=== PATIENT | female | born 1945 | race Caucasian/White ===

== ENCOUNTER 2019-11-16 15:16 | Emergency (ER) | payer MEDICARE, OTHER, SELFPAY ==
[2019-11-16 15:22] VITALS: BP 141/102; PULSE 102; RESP 16; TEMP 36.3; O2SAT 97; BMI 34.9
--- NOTE | 2019-11-16 15:37 | CT_ITS ---
STUDY: CT ABDOMEN AND PELVIS WITHOUT CONTRAST REASON FOR EXAM: Female, 74 years old. Pancreatic cancer. Abdominal pain. RADIATION DOSAGE (If Supplied By Facility): CTDIvol = ( 14.45 ) mGy, DLP = ( 791.98 ) mGycm TECHNIQUE: Transaxial images were obtained from the dome of the diaphragm to the symphysis pubis without oral contrast, and without intravenous contrast. Sagittal and coronal images were reconstructed. Individualized dose optimization techniques were used for this CT. COMPARISON: None. FINDINGS: Limited views of the lower chest show chronic pulmonary changes in both posterior lung bases including probable scarring in the right posterior costophrenic angle and mild bronchiectasis. Evaluation of the abdomen and pelvis is extremely limited without IV and oral contrast in this cancer patient. Liver shows diffuse heterogeneity, possibly a nodular surface pattern, and intrahepatic bile duct distention. There is hepatomegaly. Gallbladder has been removed. Probable dilated common bile duct although it is poorly seen. Markedly abnormal pancreas with numerous calcifications and possibly surgical clips. Irregular heterogeneous probable mass of the pancreatic head approximately 4.5 cm, again very poorly seen without IV and oral contrast. There may be local infiltration and adenopathy in the epigastric region. There appears to have been WHIPPLE procedure with gastrojejunostomy. Evaluation of the GI tract is extremely limited without oral contrast. However no gross obstruction. Cannot include segments of bowel wall thickening. Spleen and adrenal glands are unremarkable. No gross acute abnormality of the kidneys. Suggestion of edema and/or neoplastic disease to the omentum with enlarged lymphatics. Normal abdominal aorta. Normal inferior vena cava. Normal retroperitoneum. Normal urinary bladder. There is absence of the uterus consistent with a prior hysterectomy. There is a [id number] umbilical hernia containing fat. There are diffuse degenerative changes of the visualized lumbar spine. CT/Abdomen/Pelvis without Cont IMPRESSION: This exam is markedly limited without IV and oral contrast, a significant limitation when evaluating patients with pancreatic cancer. Abnormal appearance of the liver. There is hepatomegaly. There is probable intrahepatic bile duct distention. There are diffuse heterogeneity. There has been WHIPPLE procedure. Cannot exclude neoplasm infiltrating into the peripancreatic fat planes. Cannot exclude peritoneal/omental neoplastic disease. Electronically Signed: Fito Green MD at 16:56 EDT , Service support ,
--- NOTE | 2019-11-16 15:39 | ED.DCSUM_ITS ---
- ER Visit Summary Date of Service: 11/16/19 Chief Complaint: Abdominal pain History of Present Illness: The patient is a 74 F presenting with abdominal pain. Patient states she had an endoscopy and colonoscopy per Dr. Rock on Wednesday. She states she was diagnosed with an ulcer and started on Prilosec. She has been having normal bowel movements. She states today she started having abdominal pain, nausea, and vomiting. Denies blood in her stool or emesis. Denies fever. Denies other complaints. Physical Examination: Vitals are stable. Patient is afebrile. Alert no acute distress. HEENT exam is unremarkable. Neck is supple. Lungs are clear and equal bilaterally. Heart is regular rate and rhythm. Abdomen is soft left upper quadrant tenderness, no guarding or rebound Extremities are unremarkable. Skin is warm and dry. No focal neurologic deficit. Remainder of exam is unremarkable. Emergency Department Course and Treatment: Patient was given morphine, Zofran IV. CBC, chemistries unremarkable other than sodium 134, glucose 225. Alk phos 119, AST 39, lipase 63. Urinalysis unremarkable. CT abdomen pelvis shows this exam is markedly limited without IV and oral contrast, a significant limitation when evaluating patients with pancreatic cancer. Abnormal appearance of the liver. There is hepatomegaly. There is probable intrahepatic bile duct distention. There are diffuse heterogeneity. There has been WHIPPLE procedure. Cannot exclude neoplasm infiltrating into the peripancreatic fat planes. Cannot exclude peritoneal/omental neoplastic disease. Patient states she follows closely at [facility] with a specialist for her history of pancreatic cancer. She states she is imaged regularly. She is advised to follow-up with tomorrow to schedule a recheck. She understands the importance of this. She was given a GI cocktail with improvement of her symptoms. Discussed with [facility] GI on-call for Dr. Rock. Patient will be started on Carafate and will call Dr. Rock's office tomorrow for follo w-up. Advised return to ED for worsening complaints. Disposition: Discharge home Impression: Abdominal pain, history of peptic ulcer This note was generated with [employer] dictation software. It may contain incorrect words, spelling, and punctuation that were not noted in review of the chart prior to signing ED Disposition - Plan for ED Patient: Instructions: ED PEPTIC ULCER vs GASTRITIS Prescriptions: Sucralfate [Carafate] 1 gm PO 4X/DAY #28 tab Prescription Printed Referrals: Erika Mitchell MD [STAFF PHYSICIAN] - Jasiel Rock MD [CONSULTING PHYSICIAN] -
[2019-11-16] MEDS: Ondansetron 4 MG/2 ML Vial IV (15:50)
[2019-11-16] MEDS: 0.9% Normal Saline 1,000 ML 150 ML IV (15:52)
[2019-11-16] MEDS: Morphine 4 MG/ML Syringe IV (15:52)
[2019-11-16 16:07] LABS: Absolute Lymphocyte Count 0.81 X10^3/uL (0.83-4.51); Absolute Neutrophil Count 5.3 X10^3/uL (2.0-7.7); Basophil# 0.02 X10^3/uL; Basophil% 0.3 % (0-1); Eosinophil# 0.15 X10^3/uL; Eosinophils% 2.2 % (0-5); Hematocrit 40.6 % (37-47); Hemoglobin 13.2 g/dL (12.0-15.0); Lymphocyte # 0.81 X10^3/ul (4.0); Lymphocyte % 11.8 % (19-41); Mean Corp Hgb Conc 32.5 g/dL (32-36); Mean Corpuscular Hgb 29.5 pg (27.0-32.0); Mean Corpuscular Volume 90.6 fL (81-99); Mean Platelet Vol. 10.8 fl (6.2-12.0); Monocyte# 0.52 X10^3/uL; Monocyte% 7.6 % (0-10); NRBC Flagged by Analyzer 0 % (0-5); Neutrophil # 5.32 X10^3/uL (2.7-7.7); Neutrophil % 77.8 % (47-70); Platelet Count 185 K/mm3 (150-450); RBC Distribution Width CV 13.2 % (11.6-14.6); RBC Distribution Width SD 43.2 fl (35.1-43.9); Red Blood Count 4.48 M/mm3 (4.2-5.4); White Blood Count 6.8 K/mm3 (4.4-11.0)
[2019-11-16 16:29] LABS: ALB/GLOB Ratio 0.9 RATIO (0.9-2.4); AST(SGOT) 39 U/L (15-37); Alanine Aminotransfer ALT/SGPT 39 U/L (13-56); Albumin, Serum 3.5 g/dL (3.2-5.0); Alkaline Phosphatase 119 U/L (45-117); Anion Gap 4 (5-15); BUN 9 mg/dL (7-18); BUN/Creat Ratio 13.6 RATIO (10-20); Calcium,Total 9.8 mg/dL (8.5-10.1); Chloride 100 mmol/L (98-107); Creatinine, Serum 0.66 mg/dL (0.55-1.02); EST Glomerular Filtration Rate 93 mL/min (>60); Est Glom Filt Rate - Afr Amer 112 mL/min (>60); Estimated Creatinine Clearance 50.54 ml/min; Globulin 3.9 g/dL (2.2-4.2); Glucose 225 mg/dL (74-106); Lipase 63 U/L (73-393); Potassium 4.1 mmol/L (3.5-5.1); Protein, Total 7.4 g/dL (6.4-8.2); Sodium Level 134 mmol/L (136-145)
[2019-11-16 17:32] LABS: Bacteria 0 SEEN /hpf (None Seen); Mucous, Urine 0 SEEN /hpf (<or=2+); Red Blood Cells-Urine 0 SEEN /hpf (0-5)
[2019-11-16] MEDS: Mag Hydrox/Al Hydrox/Simeth 30 ML UDC PO (17:34)
[2019-11-16 17:35] LABS: Color, Urine Yellow (Yellow); Glucose, Dipstick Normal (Normal); Ketone-Dipstick 50 mg/dl (Negative); Leukocyte Esterase-Dipstick 25 /ul (Negative); Nitrite-Dipstick Negative (Negative); Occult Blood-Urine Negative /ul (Negative); Protein-Dipstick Negative (Negative); Specific Gravity, Urine 1.015 (1.002-1.030); Urine Bilirubin Dipstick Negative (Negative); Urine Clarity Sl. Cloudy (Clear); Urine Urobilinogen Normal (Normal); Urine pH 6.5 (5.0 - 8.0)
[2019-11-16 17:51] LABS: Squamous Epithelial Cells - UA 0-5 SEEN /hpf (5-10); White Blood Cells 0-5 SEEN /hpf (0-5)
--- NOTE | 2019-11-16 18:51 | ED.DEP ---
ED Disposition - Plan for ED Patient: Instructions: ED PEPTIC ULCER vs GASTRITIS Prescriptions: Sucralfate [Carafate] 1 gm PO 4X/DAY #28 tablet Referrals: Erika Mitchell MD [STAFF PHYSICIAN] - Jasiel Rock MD [CONSULTING PHYSICIAN] -
== END 2019-11-16 19:35 | disposition home or self-care (01) ==
PROVIDERS: Emergency Provider Emergency Medicine
DX: R10.12 Left upper quadrant pain (principal); I10 Essential (primary) hypertension; E11.9 Type 2 diabetes mellitus without complications; K21.9 Gastro-esophageal reflux disease without esophagitis; Z87.11 Personal history of peptic ulcer disease; Z85.07 Personal history of malignant neoplasm of pancreas; Z79.84 Long term (current) use of oral hypoglycemic drugs; Z79.899 Other long term (current) drug therapy
CPT/HCPCS: 74176; 80053; 81001; 83690; 85025; 96361; 96374; 96375; 99284; J7030; A4216; J2405

== ENCOUNTER 2019-11-17 00:37 | Observation (INO) | payer MEDICARE, OTHER, SELFPAY ==
[2019-11-16 15:22] VITALS: BMI 34.9
[2019-11-17 00:39] VITALS: BP 173/102; PULSE 103; RESP 18; TEMP 36.9; O2SAT 93; BMI 36.8
[2019-11-17] MEDS: HYDROmorphone 1 MG/ML Syringe IV (01:20)
[2019-11-17] MEDS: Ondansetron 4 MG/2 ML Vial IV ×2 (01:21→17:25)
[2019-11-17 01:31] LABS: Absolute Lymphocyte Count 0.79 X10^3/uL (0.83-4.51); Absolute Neutrophil Count 5.5 X10^3/uL (2.0-7.7); Basophil# 0.02 X10^3/uL; Basophil% 0.3 % (0-1); Eosinophil# 0.18 X10^3/uL; Eosinophils% 2.6 % (0-5); Hematocrit 41.2 % (37-47); Hemoglobin 13.1 g/dL (12.0-15.0); Lymphocyte # 0.79 X10^3/ul (4.0); Lymphocyte % 11.2 % (19-41); Mean Corp Hgb Conc 31.8 g/dL (32-36); Mean Corpuscular Volume 91.4 fL (81-99); Mean Platelet Vol. 10.3 fl (6.2-12.0); Monocyte# 0.56 X10^3/uL; NRBC Flagged by Analyzer 0 % (0-5); Neutrophil # 5.47 X10^3/uL (2.7-7.7); Neutrophil % 77.6 % (47-70); Platelet Count 176 K/mm3 (150-450); RBC Distribution Width CV 13.2 % (11.6-14.6); RBC Distribution Width SD 43.9 fl (35.1-43.9); Red Blood Count 4.51 M/mm3 (4.2-5.4)
[2019-11-17 01:48] LABS: AST(SGOT) 30 U/L (15-37); Alanine Aminotransfer ALT/SGPT 36 U/L (13-56); Albumin, Serum 3.5 g/dL (3.2-5.0); Alkaline Phosphatase 112 U/L (45-117); Anion Gap 5 (5-15); BUN 10 mg/dL (7-18); BUN/Creat Ratio 14.4 RATIO (10-20); Calcium,Total 9.3 mg/dL (8.5-10.1); Chloride 102 mmol/L (98-107); Creatinine, Serum 0.69 mg/dL (0.55-1.02); EST Glomerular Filtration Rate 88 mL/min (>60); Est Glom Filt Rate - Afr Amer 106 mL/min (>60); Estimated Creatinine Clearance 50.54 ml/min; Globulin 3.4 g/dL (2.2-4.2); Glucose 282 mg/dL (74-106); Lipase 55 U/L (73-393); Potassium 3.8 mmol/L (3.5-5.1); Protein, Total 6.9 g/dL (6.4-8.2); Sodium Level 137 mmol/L (136-145)
--- NOTE | 2019-11-17 02:03 | PCM.HP.STD ---
Problem List (1) PUD (peptic ulcer disease) Status: Acute (2) Diabetes Status: Chronic History of Present Illness Date of Admission: 11/17/19 Chief Complaint: abdominal pain The patient is a 74 year old F with a significant history of liver cancer and pancreatic cancer status post liver resection and pancreatectomy; diabetes mellitus and peptic ulcer disease presented emergency department with excruciating abdominal pain. Her abdominal pain is located at the left lumbar area. Associated with his symptoms is vomiting. Vomiting actually exacerbates her pain. Her pain improved with pain medication received at the emergency department. Of note because of diarrhea patient had an endoscopy in March 2019. The endoscopy showed 'a spot in her stomach. A follow-up endoscopy was done on 11/13/[address] Jasiel Osborne at [facility] [place]. The follow-up endoscopy showed an oozing gastric ulcer with no stigmata of bleeding. The ulcer was biopsied. Before the endoscopy on 11/13/2019 patient had some abdominal pain. After endoscopy she had some discomfort in her abdomen. However 2 days before presentation she began to have excruciating left lumbar pain as above. Within the last 24 hours she has been at emergency department 2 times. On her first visit patient had an abdominal and pelvis CT and was discharged home to follow-up with her clerical specialist. Past Medical History Past Medical History (Chronic Problems): Chronic Problems Diabetes (Chronic) Allergies Iodinated Contrast Media [DYEE] Allergy (Verified 11/17/19 00:38) Rash Penicillins [PCN] Allergy (Verified 11/17/19 00:38) Rash Home Medications: Ambulatory Orders Medication Instructions Recorded Glimepiride [Amaryl] 4 mg PO DAILY 11/16/19 Lisinopril [Prinivil] 10 mg PO DAILY 11/16/19 Metformin HCl [Metformin HCl ER] 1,000 mg PO BID 11/16/19 Omeprazole 40 mg PO DAILY 11/16/19 Pravastatin Sodium 10 mg PO DAILY 11/16/19 Sucralfate [Carafate] 1 gm PO 4X/DAY #28 tab 11/16/19 Surgical History: cholecystectomy, herniorrhaphy, hysterectomy, - - Pancreectomy; liver resection; knee replacement; and foot surgery Smoking Status: Never smoker - *Family History Paternal History Items: - - She denies knowledge of paternal medical history. His father at age 83. Maternal History Items: Heart Disease Review of Systems Constitutional: Denies: Chills, Fever, Weight Change HEENT: Denies: Head Aches, Sinus Congestion, Sinus Drainage Cardiovascular: Denies: Chest Pain, Palpitations Respiratory: Denies: Cough, Shortness of breath at rest, Sputum production Gastrointestinal: Reports: Abdominal Pain, Nausea, Vomiting Genitourinary: Denies: Dysuria Musculoskeletal: Denies: Joint Pain, Joint Tenderness Skin: Denies: Rash, Wounds Neurological: Denies: Numbness, Tingling, Focal weakness Psychiatric: Denies: Anxiety, Depression, Homicidal Ideations, Suicidal Ideations Hematologic/ Lymphatic: Denies: Easy Bruising, Easy Bleeding VTE Information - Inpt Only VTE Present on Admission: No VTE Mechan Device Prophylaxis: SCD's VTE Pharm Prophylaxis ordered?: No Patient Problems: Active and Suspected Problems Abdominal pain (Acute) PUD (peptic ulcer disease) (Acute) - Physical Exam Vitals/I&O's: Vital Signs Temp Pulse Resp BP Pulse Ox 98.4 F 103 H 18 173/102 H 93 11/17/19 00:39 11/17/19 00:39 11/17/19 00:39 11/17/19 00:39 11/17/19 00:39 Oxygen Delivery Method Room Air Weight: 109.7 kg Body Mass Index (BMI) 36.8 General: Alert, Oriented x3, Cooperative HEENT: Atraumatic, PERRLA, EOMI, Normocephalic Neck: Supple, No JVD, Negative Carotid Bruits Lungs: Clear to auscultation, Normal air movement Cardiovascular: Regular rate, Normal S1, Normal S2, No murmurs Abdomen: Bowel Sounds Present, Soft, Tender Extremities: No edema, Capillary Refill Less than 3 Seconds Skin: No rashes, No breakdown Musculoskeletal: No Tenderness to Palpation of Joints or Extremities Neurological: Cranial nerves II-XII grossly intact Psych/Mental Status: Normal Affect, Appropriate Laboratory Results 11/17/19 01:25: WBC 7.0, RBC 4.51, Hgb 13.1, Hct 41.2, MCV 91.4, MCH 29.0, MCHC 31.8 L, RDW Std Deviation 43.9, RDW Coeff of Arelis 13.2, Plt Count 176, MPV 10.3, Immature Gran % (Auto) 0.300, Neut % (Auto) 77.6 H, Lymph % (Auto) 11.2 L, Hudspeth % (Auto) 8.0, Eos % (Auto) 2.6, Baso % (Auto) 0.3, Absolute Neuts (auto) 5.5, Absolute Lymphs (auto) 0.79 L, Nucleated RBC % 0 11/17/19 01:25: Sodium 137, Potassium 3.8, Chloride 102, Carbon Dioxide 30.0, Anion Gap 5, BUN 10, Creatinine 0.69, Estim Creat Clear Calc 50.54, Est GFR (MDRD) Af Amer 106, Est GFR (MDRD) Non-Af 88, BUN/Creatinine Ratio 14.4, Glucose 282 H, Calcium 9.3, Total Bilirubin 0.90, AST 30, ALT 36, Alkaline Phosphatase 112, Total Protein 6.9, Albumin 3.5, Globulin 3.4, Albumin/Globulin Ratio 1.0, Lipase 55 L Assessment/Plan All Active Problems Abdominal pain (Acute) PUD (peptic ulcer disease) (Acute) The patient is a 74 year old F with a significant history of liver cancer and pancreatic cancer status post liver resection and pancreatectomy; diabetes mellitus and peptic ulcer disease presented emergency department with excruciating abdominal pain and with a recent endoscopy. Peptic ulcer disease After her endoscopy on 11/13/2019 Prilosec 40 mg daily was prescribed. On emergency department visit on 11/16/2019 per emergency department doctor's notes the case was discussed with the on-call doctor for Dr. Rock and the plan was to start patient on Carafate and to call Dr. Osborne's office next day. CT of the abdomen and pelvis could not exclude neoplasm. However reportedly patient has had many images in the past. Consider discussing the case with Dr. Rock. Cannot rule out neoplasm at this time. However since reportedly patient has had multiple images it will be prudent to check with her GI specialist before further work-up. Will hold home Prilosec. Will order Protonix 40 mg IV twice daily. Carafate ordered. Keep patient n.p.o. for now. Morphine as needed. Zofran IV PRN. Gentle IV hydration. The patient is anemic. Check H&H in a.m. Diabetes mellitus On presentation blood glucose was not within goal. Hold metformin for now. Glimepiride continued. Accu-Chek with correction scale insulin ordered. Reportedly he developed diabetes after pancreatectomy. Hypertension On presentation blood pressure was now within goal Lisinopril continued Trend blood pressure and adjust blood pressure medication. Hyperlipidemia Pravastatin continued DVT prophylaxis SCD ordered. No chemoprophylaxis at this time secondary to peptic ulcer disease. OBSV E&M: 33909 Initial observation care L3
--- NOTE | 2019-11-17 02:17 | ED.VIS.GEN ---
History of Present Illness Chief Complaint: Nausea/Vomiting Informant: Patient Narrative: Patient was recently seen for abdominal pain had a normal work-up including CAT scan and was discharged. She arrives with significant pain. She had endoscopy 4 days ago and was found to have a peptic ulcer disease. She denies fever chills cough or congestion she denies lower abdominal pain. Past Medical History - Allergies and Home Meds Allergies/Adverse Reactions: Allergies Iodinated Contrast Media [DYEE] Allergy (Verified 11/17/19 00:38) Rash Penicillins [PCN] Allergy (Verified 11/17/19 00:38) Rash Primary Care Physician: Care Physician,No Primary [Primary Care Provider] - Past Medical History: - - Peptic ulcer disease otherwise reviewed and unremarkable Smoking Status: Never smoker Review of Systems General: Denies: Fever Cardiovascular: Denies: Chest pain, Palpitations Respiratory: Denies: Dyspnea, Cough Gastrointestinal: Reports: Abdominal pain, Nausea. Denies: Vomiting Genitourinary: Denies: Dysuria Musculoskeletal: Denies: Myalgias, Arthralgias Skin: Denies: Rash Neurological: Denies: Headache, Weakness Endocrine: Denies: Polyuria, Polydipsia Hematologic: Denies: Easy bruising, Easy bleeding Physical Exam Vital Signs/Narrative: Vital Signs Temp Pulse Resp BP Pulse Ox 11/17/19 00:39 98.4 F 103 H 18 173/102 H 93 General: Well nourished, Well developed, - - Does appear in some distress Head: Normocephalic ENT: Moist mucous membranes Cardiovascular: Regular rate, Regular rhythm Respiratory: No distress Abdomen: Soft, - - Gastric tenderness with no right upper quadrant pain no lower abdominal pain no guarding or rebound. Back: Nontender Extremities: No edema Skin: Normal color Neurological: Alert Diagnostic/Tx/Re-eval - Medical Decision Making Patient has normal blood work, I do not believe it is reasonable to repeat a CAT scan so early she may need another CTA tomorrow however as of now I will admit her for intractable pain. ED Disposition - Plan for ED Patient: Disposition: Home or Assisted Living Diagnosis: Abdominal pain Referrals: Care Physician,No Primary [Primary Care Provider] -
[2019-11-17 02:52] VITALS: BP 157/81; PULSE 89; RESP 16; TEMP 36.8; O2SAT 94
[2019-11-17 03:11] VITALS: BMI 34.6
[2019-11-17 03:21] VITALS: BP 159/88; PULSE 90; RESP 17; TEMP 36.6; O2SAT 94
[2019-11-17 03:33] VITALS: BMI 34.6
[2019-11-17] MEDS: 0.9% Normal Saline 1,000 ML 75 ML IV ×2 (03:45→17:07)
[2019-11-17 05:39] LABS: Hematocrit 38.5 % (37-47)
[2019-11-17] MEDS: Sucralfate 1 GM Tablet PO ×4 (06:36→21:51)
[2019-11-17] MEDS: Insulin Lispro 100 UNIT/ML INSULN.PEN SC ×3 (06:40→16:28)
[2019-11-17 07:06] LABS: Bedside Glucose 278 mg/dL (70-110)
--- NOTE | 2019-11-17 08:21 | PCM.PN.BLA ---
Progress Note This is a 74 years old female patient admitted because of intractable abdominal pain in context of recent diagnosis of peptic ulcer. Patient returned to the emergency room within few hours after discharge. On the first visit to ED, CT scan abdomen and pelvis done, findings reviewed. Patient with history of pancreatic cancer status post surgery. She was started on IV Protonix and Carafate. This morning, he is feeling much better, she has no more abdominal pain. Denied nausea or vomiting. Her routine blood work was unremarkable. LFT and lipase were unremarkable. Vital signs are stable. Plan to continue same treatment, advance diet to clear liquid diet and if tolerated, advance to full liquid diet later today, anticipate discharge home tomorrow.
[2019-11-17 09:21] VITALS: BP 144/76; PULSE 92; RESP 18; TEMP 36.8; O2SAT 93
[2019-11-17 13:05] LABS: Bedside Glucose 227 mg/dL (70-110)
--- NOTE | 2019-11-17 13:29 | CHAPLAIN ---
Type of Pastoral Visit _x__ Initial Visit ___ Follow-up Visit ___ On-call Visit ___ General Patient Visit ___ Spiritual Assessment ___ Family Conference ___ Bereavement ___ Rapid Response ___ Code Blue ___ Other (describe below) Pastoral Care Referral From _x__ Patient ___ Family ___ Nurse ___ Physician ___ Kineseologist ___ Digital Imaging Specialist ___ Other (describe below) Sacrament/Intervention _x__ Active listening ___ Anointing ___ Mandaen ___ Bereavement ___ Communion _x__ Pam exploration ___ ___ Life review _x__ Prayer ___ Reconciliation ___ Sacrament of Sick _x__ Supportive presence ___ Wedding ___ Other (describe below) Pastoral Comments
[2019-11-17 15:50] VITALS: BP 158/78; PULSE 90; RESP 18; TEMP 37.3; O2SAT 94
[2019-11-17 16:35] LABS: Bedside Glucose 223 mg/dL (70-110)
[2019-11-17] MEDS: Lisinopril 10 MG Tablet PO (17:11)
[2019-11-17] MEDS: Acetaminophen 325 MG Tablet 650 MG PO (17:11)
[2019-11-17] MEDS: 0.9% Saline Lock 10 ML Syringe IV (17:25)
--- NOTE | 2019-11-17 17:56 | NURSING ---
pt states that Dr. Rock called her today and stated that her ulcer is actually cancer and he will see her in his office Wednesday. Has been nauseated at times today with emesis x1 thx [id number]
[2019-11-17 21:07] VITALS: BP 132/63; PULSE 77; RESP 18; TEMP 37.1; O2SAT 96
[2019-11-17] MEDS: Pravastatin 20 MG Tablet 10 MG PO (21:51)
[2019-11-18] MEDS: Insulin Lispro 100 UNIT/ML INSULN.PEN SC ×2 (00:40→06:35)
[2019-11-18 00:46] LABS: Bedside Glucose 185 mg/dL (70-110)
[2019-11-18 02:46] VITALS: BP 139/64; PULSE 73; RESP 18; TEMP 37.3; O2SAT 92
[2019-11-18] MEDS: Acetaminophen 325 MG Tablet 650 MG PO (06:35)
[2019-11-18] MEDS: Sucralfate 1 GM Tablet PO ×2 (06:35→10:01)
[2019-11-18] MEDS: 0.9% Normal Saline 1,000 ML 75 ML IV (06:36)
[2019-11-18 06:51] LABS: Bedside Glucose 223 mg/dL (70-110)
[2019-11-18 07:50] VITALS: O2SAT 90
[2019-11-18] MEDS: Glimepiride 4 MG Tablet PO (08:08)
[2019-11-18 08:45] VITALS: BP 130/73; PULSE 80; RESP 16; TEMP 36.7; O2SAT 97
--- NOTE | 2019-11-18 11:59 | DCINST_ITS ---
- Discharge Diagnoses Current Active Problems: Current Active and Chronic Problems Abdominal pain (Acute) PUD (peptic ulcer disease) (Acute) Diabetes (Chronic) You will use the following diet at home:: Calorie/Carbohydrate Controlled (specify 1200, 1400, etc) - 1800 lashaun., Full liquid, Other - Advance diet as tolerated. Your food should be the consistency of: Regular Discharge Activity: Return to Normal Activity Weight Bearing Status: Weight bearing as tolerated Call your doctor if you observe: Fever of 101 or Higher, Shortness of breath, Dizziness, Fainting spells, Chest pain, Increased palpitations (irregular h eartbeat), Uncontrolled pain Additional Instructions: Follow-up with Dr. Rock as scheduled. Allergies/Adverse Reactions: Allergies Iodinated Contrast Media [DYEE] Allergy (Verified 11/17/19 00:38) Rash Penicillins [PCN] Allergy (Verified 11/17/19 00:38) Rash Medications to take at Discharge Glimepiride [Amaryl] 4 mg PO DAILY 11/16/19 Lisinopril [Prinivil] 10 mg PO DAILY 11/16/19 Metformin HCl [Metformin HCl ER] 1,000 mg PO BID 11/16/19 Pravastatin Sodium 10 mg PO DAILY 11/16/19 Sucralfate [Carafate] 1 gm PO 4X/DAY #28 tab 11/16/19 Mag Hydrox/Al Hydrox/Simeth [Mylanta II] 30 ml PO Q8H PRN PRN #14 udc 11/18/19 Ondansetron HCl [Zofran] 4 mg PO Q8H PRN PRN #30 tab 11/18/19 Pantoprazole Sodium [Protonix] 40 mg PO BID #90 tab 11/18/19 Sucralfate [Carafate] 1 gm PO 1HR_ACHS #90 tab 11/18/19 The following prescriptions were given: Sucralfate [Carafate] 1 gm PO 1HR_ACHS #90 tab Transmission Status: Pending to [id number] Mag Hydrox/Al Hydrox/Simeth [Mylanta II] 30 ml PO Q8H PRN PRN #14 udc PRN Reason: indigestion/ nausea Transmission Status: Pending to [id number] Pantoprazole Sodium [Protonix] 40 mg PO BID #90 tab Transmission Status: Pending to [id number] Ondansetron HCl [Zofran] 4 mg PO Q8H PRN PRN #30 tab PRN Reason: Nausea and vomiting Transmission Status: Pending to [id number] Primary Care Physician: Care Physician,No Primary [Primary Care Provider] - Please follow up with your Primary Care Physician in: 2 weeks. Test Results: Test results from this visit will be discussed in further detail at your follow- up appointment, if applicable.
[2019-11-18 12:00] VITALS: PULSE 90; RESP 16; TEMP 36.8; O2SAT 96
--- NOTE | 2019-11-18 13:15 | DS.PCM_ITS ---
Discharge Date and Diagnosis - Problem List Patient Problems: Active and Suspected Problems Abdominal pain (Acute) PUD (peptic ulcer disease) (Acute) Date of Admission: 11/17/19 Date of Discharge: 11/18/19 - Primary Discharge Diagnosis Acute Problems: Active Problems #1 intractable abdominal pain and nausea. #2 gastric ulcer, reportedly determined to be cancer according to the patient. - Secondary Discharge Diagnosis Chronic Problems: Chronic Problems Diabetes (Chronic) Hospital Course and Treatment Operations: None Procedures: None Summary of Care Provided: Patient seen and examined on the day of discharge and appeared to be stable to be discharged home. Abdominal pain has been improving as well as nausea. She tolerated full liquid diet. Her vital signs are stable. The patient is a 74 year old F presented to the emergency room because of intractable abdominal pain with nausea. 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 She had upper EGD done on November 13, [address] Rock at [facility] and she was found to have gastric ulcer which was pipe sized. The patient came to the emergency department the day before admission, had CT scan abdomen and pelvis without contrast that revealed abnormal appearance of the liver, hepatomegaly, probable intrahepatic bile duct distention, Whipple's procedure changes and they mentioned that they cannot exclude peritoneal or omental neoplastic disease. Patient was treated with IV fluids, IV morphine PRN for pain, IV antiemetics, IV Protonix as well as Carafate and Mylanta. Her routine blood work was unremarkable. LFT and lipase were normal. Above-mentioned treatment, her symptoms started to improve. Patient was started on clear liquids which was tolerated. According to the patient, she received a call from Dr. Rock who informed her that her gastric ulcer turned to be cancerous and he requested her to follow-up with him this coming week. On the day of discharge, patient felt better, diet advanced to full liquid diet and she tolerated it. Patient discharged home in a stable medical condition, discharged on Protonix 40 mg p.o. twice daily, Carafate 4 times a day, Zofran as needed, Mylanta as needed, continued on her previous home medications without any changes, plan to follow-up with Dr. Rock this week as scheduled, recommended follow-up with her manager mall at [facility] regarding her history of pancreatic cancer, recommended follow-up with PCP in 2 week. Patient Problems: Active and Suspected Problems Abdominal pain (Acute) PUD (peptic ulcer disease) (Acute) - Physical Exam Vitals/I&O's: Vital Signs Temp Pulse Resp BP Pulse Ox 98.3 F 90 16 130/73 H 96 11/18/19 12:00 11/18/19 12:00 11/18/19 12:00 11/18/19 08:45 11/18/19 12:00 Oxygen Delivery Method Room Air Weight: 227 lb 8.273 oz Body Mass Index (BMI) 34.6 Intake and Output for Last 24 Hours 11/16/19 11/17/19 11/18/19 23:59 23:59 23:59 Intake Total 2708.75 / 2708.75 2486.25 / 2486.25 Output Total 1350 / 1350 1550 / 1550 Balance 1358.75 / 1358.75 936.25 / 936.25 General: Alert, Oriented x3, Cooperative, No apparent distress HEENT: Atraumatic, PERRLA, EOMI, Normocephalic Oral: Moist Mucosa, No Gingival or Mucosal Lesions/ Ulcerations Neck: Supple, No JVD, Negative Carotid Bruits, Trachea Midline, Thyroid Normal Size and Texture Lungs: Clear to auscultation, Normal air movement, No rhonchi, No wheeze, No rales Cardiovascular: Regular rate, Regular Rhythm, Normal S1, Normal S2, PMI Normal Abdomen: Bowel Sounds Present, Soft, Non Tender, Non-Distended, No Hepato- splenomegaly Extremities: No clubbing, No cyanosis, No edema Skin: No rashes, No breakdown Lymphatic: No Cervical, Supraclavicular, or Inguinal Adenopathy Neurological: Cranial nerves II-XII grossly intact, Neuro grossly intact Psych/Mental Status: Normal Affect, Appropriate Laboratory Results 11/17/19 16:26: POC Glucose 223 H 11/18/19 00:35: POC Glucose 185 H 11/18/19 06:32: POC Glucose 223 H Current Medications Acetaminophen (Tylenol) 650 mg PO Q6H PRN PRN PRN Reason: Pain Score 1-10/Temp > 100.7 F Last Admin: 11/18/19 06:35 Dose: 650 mg Documented by: Al Hydroxide/Mg Hydroxide (Mylanta Ii) 30 ml PO Q6H PRN PRN PRN Reason: indigestion/ nausea Dextrose (D50w Syringe) 0 gm IV X1 PRN; Protocol PRN Reason: Hypoglycemia Glimepiride (Amaryl) 4 mg PO DAILYCM [facility] Last Admin: 11/18/19 08:08 Dose: 4 mg Documented by: Glucagon () 1 mg IM .X1 PRN PRN Reason: Hypoglycemia Hydralazine HCl (Apresoline Iv) 10 mg IV Q8H PRN PRN PRN Reason: for SBP>160 Sodium Chloride () 1,000 mls @ 75 mls/hr IV .[id number] [facility] Last Infusion: 11/18/19 11:37 Dose: Infused Documented by: Pantoprazole Sodium 40 mg/ (Sodium Chloride) 110 mls @ 330 mls/hr IV Q12 [facility] Last Infusion: 11/18/19 11:38 Dose: Infused Documented by: Sodium Chloride () 250 mls @ 15 mls/hr IV .[id number] PRN PRN Reason: Saline Flush Insulin Human Lispro (Humalog Kwikpen (Bkc)) 0 unit SC Q6 [facility]; Protocol Last Admin: 11/18/19 11:37 Dose: Not Given Documented by: Lisinopril (Zestril) 10 mg PO QHS [facility] Last Admin: 11/17/19 17:11 Dose: 10 mg Documented by: Morphine Sulfate () 2 mg IV Q3H PRN PRN PRN Reason: Pain Score 6-10/10 Ondansetron HCl (Zofran) 4 mg IV Q8H PRN PRN PRN Reason: NAUSEA/VOMITING Last Admin: 11/17/19 17:25 Dose: 4 mg Documented by: Pravastatin Sodium (Pravachol) 10 mg PO DAILY@2200 [facility] Last Admin: 11/17/19 21:51 Dose: 10 mg Documented by: Sodium Chloride () 10 - 40 ml IV UD PRN PRN Reason: SALINE FLUSH Last Admin: 11/17/19 17:25 Dose: 10 ml Documented by: Sucralfate (Carafate) 1 gm PO 1HR_ACHS [facility] Last Admin: 11/18/19 10:01 Dose: 1 gm Documented by: Discharge Activity: Return to Normal Activity Weight Bearing Status: Weight bearing as tolerated Call your doctor if you observe: Fever of 101 or Higher, Shortness of breath, Dizziness, Fainting spells, Chest pain, Increased palpitations (irregular heartbeat), Uncontrolled pain Home Medications: Medications to take at Discharge Glimepiride [Amaryl] 4 mg PO DAILY 11/16/19 Lisinopril [Prinivil] 10 mg PO DAILY 11/16/19 Metformin HCl [Metformin HCl ER] 1,000 mg PO BID 11/16/19 Pravastatin Sodium 10 mg PO DAILY 11/16/19 Sucralfate [Carafate] 1 gm PO 4X/DAY #28 tab 11/16/19 Mag Hydrox/Al Hydrox/Simeth [Mylanta II] 30 ml PO Q8H PRN PRN #14 udc 11/18/19 Ondansetron HCl [Zofran] 4 mg PO Q8H PRN PRN #30 tab 11/18/19 Pantoprazole Sodium [Protonix] 40 mg PO BID #90 tab 11/18/19 Sucralfate [Carafate] 1 gm PO 1HR_ACHS #90 tab 11/18/19 Following Prescrptions Were Given to Patient: Sucralfate [Carafate] 1 gm PO 1HR_ACHS #90 tab Transmission Status: Received by [facility] Mag Hydrox/Al Hydrox/Simeth [Mylanta II] 30 ml PO Q8H PRN PRN #14 udc PRN Reason: indigestion/ nausea Transmission Status: Received by [facility] Pantoprazole Sodium [Protonix] 40 mg PO BID #90 tab Transmission Status: Received by [facility] Ondansetron HCl [Zofran] 4 mg PO Q8H PRN PRN #30 tab PRN Reason: Nausea and vomiting Transmission Status: Received by [facility] Primary Care Physician: Care Physician,No Primary [Primary Care Provider] - Please follow up with your Primary Care Physician in: 2 weeks. Disposition: Home Minutes spent on discharge:: 28 Patient Condition:: Stable Medical Necessity - Tobacco Use Smoking Status: Never smoker Tobacco Use: Secondhand Meaningful Use Info Meaningful Use Diagnoses (Choose all that apply): None applicable OBSV E&M: 41859 Observation care discharge
== END 2019-11-18 12:40 | disposition home or self-care (01) ==
LOC: ED 02:20 → MS3 02:46
PROVIDERS: Admitting Provider Hospitalist; Emergency Provider Emergency Medicine; Visit Provider Hospitalist
DX: K25.3 Acute gastric ulcer without hemorrhage or perforation (principal); E11.9 Type 2 diabetes mellitus without complications; E78.5 Hyperlipidemia, unspecified; I10 Essential (primary) hypertension; Z79.899 Other long term (current) drug therapy; Z79.84 Long term (current) use of oral hypoglycemic drugs; Z85.07 Personal history of malignant neoplasm of pancreas; Z85.05 Personal history of malignant neoplasm of liver
CPT/HCPCS: 36415; 80053; 82962; 83690; 85014; 85018; 85025; 96361; 96365; 96366; 96375; 96376; 97802; 99218; 99284; J7030; A4216; G0378; J2405

== ENCOUNTER 2020-01-05 12:23 | Day surgery (SDC) | payer MEDICARE, OTHER, SELFPAY ==
--- NOTE | 2020-01-03 19:04 | HP.PCM_ITS ---
History and Physical Date of Admission: 01/05/20 HISTORY AND PHYSICAL ? Yessi Cobb 1945 ? ? REFERRING PHYSICIAN: Jd Raphael, * ? CHIEF COMPLAINT: No chief complaint on file. ? 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 She had presented with increasing weakness and found to have bleeding gastric ulcer which was gastric adenocarcinoma. Found to have metastatic disease. Has been offered FOLFOX, requiring IV access. She has history of PE, and has right lower extremity DVT. Patient does feel weak all over. Denies fevers. She is being treated for a recent pneumonia and presently on antibiotics. ? ? PAST MEDICAL HISTORY Diagnosis Date ? Abnormality of gait 06/30/2011 ? Actinic skin damage 09/27/2012 ? 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 Endocrine neoplasm ? ? Hyperlipidemia LDL goal < 100 ? ? Hypertension ? ? Junctional nevus of thoracic region 09/27/2012 ? Lactose intolerance ? ? Melanocytic nevus of lower extremity 09/27/2012 ? MEN1 (multiple endocrine neoplasia) (HCC) ? ? Osteoarthritis ? ? Other hammer toe (acquired) 07/31/2011 ? Pes anserinus tendinitis or bursitis 01/25/2012 ? Scar condition and fibrosis of skin 11/25/2011 ? Seborrheic Keratoses 09/27/2012 ? Snoring ? ? Solar Lentigines 09/27/2012 ? 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 Type II or unspecified type diabetes mellitus with hyperosmolarity, uncontrolled ? ? Vitamin D deficiency ? ? Xerosis cutis 09/27/2012 ? PAST SURGICAL HISTORY Procedure Laterality Date ? AUTOTRANSPLANT, PARATHYROID ? 2000 ? MEN 1 ? CATARACT EXTRACTION HX Bilateral ? COLONOSCOP W/ OR W/O BRSH SPEC ? 07/03/13 ? Colonoscopy ? COLONOSCOP W/ OR W/O BRSH SPEC ? 11/13/2019 ? Colonoscopy ? COLONOSCOPY ? 02/2004 ? [place] ? CORRECT BUNION,SIMPLE ? 06/2011 ? left ? CORRECTION OF BUNION Left 03/28/2014 ? revision and hammertoes ? EGD W/O OR W/BRUSH/WASH ? 12/21/2016 ? EGD ? EGD W/O OR W/BRUSH/WASH ? 11/13/2019 ? EGD ? PAST SURGICAL HISTORY OF ? 2000 ? distal pancreatectomy enucleation of duodenal carcinoid and radiofrequency thermal ablation of a single metastatic focus of neuroendocrine tumor ? REMOVAL GALLBLADDER ? 1980 ? REPAIR INCISIONAL HERNIA,JULIET ? ? ? umbilical ? TOTAL ABDOM HYSTERECTOMY ? 1998 ? fibroids ? TOTAL KNEE REPLACEMENT Right 06/14/15 ? Knee replacement, total ? ? Current Outpatient Medications Medication Sig ? ondansetron (ZOFRAN) 8 mg tablet Take 1 tablet by mouth every 8 hours as needed for Nausea/Vomiting. ? OLANZapine (ZYPREXA) 10 mg tablet Take 1 tablet by mouth daily at bedtime. for 4 nights beginning the night of chemotherapy treatment. ? dexamethasone (DECADRON) 4 mg tablet Take 1 tablet by mouth twice daily with meals. on the second, third and fourth day after each chemotherapy treatment. ? lisinopril (ZESTRIL, PRINIVIL) 5 mg tablet Take 0.5 tablets by mouth once daily. ? Blood Pressure Monitor 1 Each once daily. ? doxycycline hyclate (VIBRAMYCIN) 100 mg capsule Take 1 capsule by mouth every 12 hours for 5 doses. ? metoprolol tartrate, short acting, (LOPRESSOR) 50 mg tablet Take 1 tablet by mouth every 12 hours. ? pantoprazole DR (PROTONIX) 40 mg tablet Take 1 tablet by mouth twice daily before meals (0600/1600). ? food supplemt, lactose-reduced (BOOST HIGH PROTEIN) 0.06 gram- 1 kcal/mL liqd Drink 1 bottle of boost three times daily along with small meals as tolerated ? metFORMIN ER (FORTAMET) 500 mg 24 hr tablet Take 1,000 mg by mouth twice daily with meals. ? acetaminophen 650 mg CR tablet Take 2 tablets by mouth twice daily. Held while in the hospital ? glimepiride (AMARYL) 4 mg tablet Take 1 tablet by mouth daily with breakfast. Held while in the hospital ? blood sugar diagnostic (BLOOD GLUCOSE TEST) test strip 1 Strip twice daily. E11.9 Held while in the hospital ? Blood-Glucose Meter Use to check BS daily. Dx: E 11.9 Held while in the hospital ? Lancets lancets 1 Each twice daily. E11.9 Held while in the hospital ? polyethylene glycol 3350 (MIRALAX, GLYCOLAX) 17 gram packet Take 1 Packet by mouth once daily. ? pravastatin (PRAVACHOL) 10 mg tablet Take 1 tablet by mouth once daily. ? ? ALLERGIES: Cigarette Smoke, Ivp Dye [Iodine], Meloxicam, Nickel, Oxycodone, Penicillin G, Gopxziw-Atx-Jlb Reductase Inhibitors, Steroids [Corticosteroids (Glucocorticoids)], and Adhesive Tape (Rosins) ? PERSONAL HISTORY: Social History ? Tobacco Use ? Smoking status: Never Smoker ? Smokeless tobacco: Never Used Substance Use Topics ? Alcohol use: No ? ? Frequency: Never ? ? Drinks per session: Patient refused ? ? Binge frequency: Never ? Drug use: No ? FAMILY HISTORY Problem Relation Age of Onset ? Heart Mother ? ? other (rheumatoid athritis) Sister ? ? other (lymphoma) Sister ? ? other (lymphoma) Sister ? ? other (uterine cancer) Sister ? ? other (killed as a child) Brother ? ? other (brain cancer) Brother ? ? other (lung disease) Brother ? ? other (MEN1) Daughter ? ? other (MEN1) Daughter ? ? other (Depression) Child ? ? Both Daughter's ? other (MEN-1) Child ? ? Both Daughters ? ? REVIEW OF SYSTEMS: General - denies fevers, has had weight loss - has poor appetite, denies sweats, feels overall weak Cardiovascular - denies chest pain, denies history of [place] Pulmonary - has shortness of breath with exertion, denies coughing up blood Gastrointestinal - denies abdominal pain at present, has retching/gagging at times, denies hematemesis Neurological - denies seizures, denies history of CVA, has some numbness of feet Genitourinary - denies burning with urination, denies blood in urine Hematological - is anemic, has easy bruising, has vena caval filter in place, had PE and RLE DVT Skin - denies nonhealing skin wounds Musculoskeletal - has osteoarthritis Endocrine - has diabetes, has MEN1 Psychological ? denies hallucinations ? PHYSICAL EXAMINATION: General: The patient is 74 year old female, well nourished, well hydrated in no acute distress. The patient is oriented to time, place, and person. VITALS: Wt 216# BP 123/70 HR 99 Temp 97.6F Head ? Normocephalic. EOM intact with sclera clear and no icterus noted. Mouth with mucus membranes moist. Neck - supple with no jugular venous distention noted. Trachea is midline. Lungs ? clear to auscultation. Normal breath sounds. No rales/rhonchi/wheezing noted. No labored breathing noted, such as retractions. No cough heard. Heart ? normal S1 and S2 auscultated. No rubs/clicks/murmurs noted. Regular rate. Abdomen ? soft and benign. Normal bowel sounds. No abdominal bruits noted. Difficult to determine if any masses or organomegaly due to body habitus. Extremities ? ecchymoses of upper extremities, no calf tenderness noted. Bilateral lower extremity dependent swelling, but no pitting edema noted. Skin ? normal skin integrity. Neurological ? no focal deficits noted. Psych ? calm and appropriate ? ? IMPRESSION: metastatic gastric cancer, need for IV access for palliative chemotherapy ? PLAN: I have discussed the above with the patient and her daughter who is present with her. I have offered placement of portacath I have explained the procedure to the patient. I have counseled the patient as to the risks of the procedure, including but not limited to: infection, bleeding, injury to any blood vessels/nerves, scar tissue, injury to the lungs such as hemothorax and/or pneumothorax, thromboses of blood vessels, non functioning of port, infection of port, wound infections, complications of anesthesia, etc. ? the patient understands. Will plan placement this Wednesday to expedite patient's treatment. The patient was offered a surgery/procedure. The provider and patient have discussed in detail the risk of exposure to and/or potential harm posed by the COVID-19 virus with having a surgery/procedure at this time versus the risk of delaying the surgery/procedure. It is not possible to know either the risk of delaying the surgery or procedure or chance of getting an infection with perfect accuracy, but a joint decision was made between the patient and the provider to proceed at this time with the scheduled surgery/procedure. The patient wishes to proceed. I have answered all questions to the patient?s satisfaction and the patient has no further questions. . Diagnoses: (C16.8) Malignant neoplasm of overlapping sites of stomach (HCC) (primary encounter diagnosis) (Z45.2) Exhausted vascular access Return to Clinic: The patient is instructed to follow-up with me after the procedure as per needed.
[2020-01-05] VITALS (11 sets, daily range): BP systolic 82–135; BP diastolic 41–80; PULSE 82–92; RESP 16–18; TEMP 36.4–37.3; O2SAT 92–98; BMI 32.8
[2020-01-05] MEDS: Lactated Ringers 1,000 ML 75 ML IV ×2 (13:00→16:03)
[2020-01-05 13:26] LABS: Bedside Glucose 157 mg/dL (70-110)
--- NOTE | 2020-01-05 14:10 | DCINST_ITS ---
Discharge Diet: No Restrictions Discharge Activity: Return to Normal Activity, May not drive while taking narcotic pain medications. Lifting Restrictions: no lifting with affected arm greater than 10 pounds for two weeks Call your doctor if your incision/area has: Continuous Slow Oozing, Foul Smelling Discharge Call your doctor if you observe: Fever of 101 or Higher Additional Instructions: Recommended pain control regimen - May take 600 mg ibuprofen (Motrin) and then in 3-4 hours, may take 650 mg acetaminophen (Tylenol), then in 3-4 hours may take 600 mg ibuprofen, then in 3- 4 hours may take 650 mg acetaminophen and so on for 2-3 days May take narcotic pain medication for pain that is not controlled by above and at night for comfort through the night Leave dressings in place May get dressings wet in shower - do not scrub in the area and pat dry Do not soak - no tub baths/swimming If dressing appears to be soiled/open at one end/no longer sealed - may remove dressing but leave site uncovered (do not replace with any type of dressing) - leave steristrips in place - may get wet but do not scrub in the area and pat dry Allergies/Adverse Reactions: Allergies Iodinated Contrast Media [DYEE] Allergy (Verified 01/05/20 12:44) Rash Penicillins [PCN] Allergy (Verified 01/05/20 12:44) Rash Medications to take at Discharge Glimepiride [Amaryl] 4 mg PO DAILY 11/16/19 Metformin HCl [Metformin HCl ER] 1,000 mg PO BID 11/16/19 Pravastatin Sodium 10 mg PO DAILY 11/16/19 Mag Hydrox/Al Hydrox/Simeth [Mylanta II] 30 ml PO Q8H PRN PRN #14 udc 11/18/19 Ondansetron HCl [Zofran] 4 mg PO Q8H PRN PRN #30 tab 11/18/19 Pantoprazole Sodium [Protonix] 40 mg PO BID #90 tab 11/18/19 Metoprolol Tartrate [Lopressor (Beta Jack)] 50 mg PO DAILY 01/04/20 Hydrocodone Bitart/Apap 5-325 [[place] 5MG-325MG] 1 tab PO Q8H PRN PRN 5 Days #15 tab 01/05/20 The following prescriptions were given: Hydrocodone Bitart/Apap 5-325 [Callicoon 5MG-325MG] 1 tab PO Q8H PRN PRN 5 Days #15 tab PRN Reason: Pain Transmission Status: Received by [facility] Primary Care Physician: SANJAY SMITH [Other] Test Results: Test results from this visit will be discussed in further detail at your follow- up appointment, if applicable. Please Follow Up With: Yessi Cisneros MD - call When: to be seen in 7-10 days, please call for date and time, thank you
--- NOTE | 2020-01-05 14:12 | OP.PCM_ITS ---
Report of Operation Date of Procedure: 01/05/20 Pre-Operative Diagnosis: metastatic gastric cancer, need for IV access Post-Operative Diagnosis: same Surgery/Procedure Performed:: placement of permanent indwelling tunneled catheter in left internal jugular vein with subcutaneous port Description of Surgical Findings:: normal left IJ anatomy to SVC Type of Anesthesia:: Local MAC Anesthesiologist: Anthony Antony Specimen's removed: none Estimated Blood Loss (mL): < 10 ml Fluids Replaced: 600 ml RL Description of Procedure: After informed consent was given, the patient was brought to the Operating Room. Appropriate time out protocol was followed. The patient was then placed in the supine position. The patient was then given IV conscious sedation for anesthesia. The patient?s upper chest and neck were then prepped with a surgical skin preparation and sterile surgical drapes were placed. The ultrasound machine was used for real time imaging. After proper landmarks were ascertained, the skin at the upper left chest and neck area was then infiltrated with 1% xylocaine with epinephrine. Using the ultrasound trasnducer for guidance, a needle trocar was then inserted into the left internal jugular vein. This was visualized with the ultrasound probe. There was good aspiration of venous blood. A wire was then threaded into the needle trocar and this was visualized under fluoroscopy to ensure that the wire was in the left internal jugular vein. Once this was done, then the needle trocar was removed. A small skin jena was made with an 11 blade knife at the wire entrance site. The dilator with the introducer sheath attached was then placed over the wire into the left internal jugular vein via the Seldinger technique and this was visualized under fluoroscopy. The dilator and sheath were in proper position as visualized by fluoroscopy in real time. The wire and dilator were then removed. The catheter was then threaded into the introducer sheath and was positioned with its tip at the junction of the superior vena cava and the right atrium as visualized under fluoroscopy in real time. I personally reviewed all of the above fluoroscopic images and noted that the positions of the wire and catheter were correct so that the next step could be conducted. The catheter was flushed with a heparin saline mixture prior to placement. A subcutaneous pocket was then created caudad to the lateral left clavicle. A transverse skin incision was made after the skin and subcutaneous tissues were infiltrated with local anesthetic. Blunt dissection was then used to create a space large enough for placement of the subcutaneous port. Hemostasis was carefully controlled with electrocautery. The port was sutured to the subcutaneous fascia using vicryl suture at three sites. The catheter was then tunneled into the subcutaneous pocket. The excess catheter was transected. The catheter was then attached to the subcutaneous port using crm marketing executive?s guidelines. The port was then placed in the subcutaneous pocket and the sutures were ligated. The subdermal incis ional sites were reapproximated with interrupted vicryl suture. The skin was reapproximated with monocryl suture in a subcuticular fashion. Cavilon and steristrips were used for reinforcement of the skin closure and a sterile opsite dressing was applied. Sponge, needle, and instrument count were verified and correct at the time of skin closure. Aspiration revealed good influx of blood and the port was then flushed with heparinized saline. The patient was brought to the Recovery Room in stable condition Grafts/Implants Used: [employer] Safety PowerPort Lot:[id number], exp 2021-02-23 - Complications none noted
--- NOTE | 2020-01-05 15:20 | RAD_ITS ---
STUDY: X-RAY CHEST REASON FOR EXAM: Female, 74 years old. Post op port placement TECHNIQUE: Single AP portable view of the chest. COMPARISON: None. FINDINGS: A left-sided [place] catheter has been placed. The tip is in the proximal portion of the superior vena cava. Mild increased markings at the lung bases suggestive of atelectasis. Blunting of the right costophrenic angle. Normal size heart. Normal mediastinum and char. Normal visualized pulmonary arteries. There is atherosclerotic tortuosity of the aortic arch and descending thoracic aorta. There are diffuse degenerative changes of the visualized thoracic spine. Normal visualized ribs, clavicles, and shoulders. There is no demonstrated abnormality of the visualized soft tissue structures of the upper abdomen. RAD/CXR for Line Placement IMPRESSION: The tip of the left portacatheter is in the proximal portion of the superior vena cava. Mild increased markings at the lung bases. Electronically Signed: Ariel Adame, at 15:37 EDT , Service support ,
== END 2020-01-05 17:03 | disposition home or self-care (01) ==
LOC: SDC 12:24 → AC 12:27
PROVIDERS: Referring Provider Surgery; Visit Provider Surgery
PROC: (CPT 36561; principal; 2020-01-05 13:45)
DX: Z45.2 Encounter for adjustment and management of vascular access device (principal); C16.8 Malignant neoplasm of overlapping sites of stomach; C78.7 Secondary malignant neoplasm of liver and intrahepatic bile duct; C78.02 Secondary malignant neoplasm of left lung; C78.01 Secondary malignant neoplasm of right lung; C78.89 Secondary malignant neoplasm of other digestive organs; I47.1 Supraventricular tachycardia; I10 Essential (primary) hypertension; K21.9 Gastro-esophageal reflux disease without esophagitis; M19.90 Unspecified osteoarthritis, unspecified site; E78.00 Pure hypercholesterolemia, unspecified; E11.00 Type 2 diabetes mellitus with hyperosmolarity without nonketotic hyperglycemic-hyperosmolar coma (NKHHC); E31.21 Multiple endocrine neoplasia [MEN] type I; Z79.84 Long term (current) use of oral hypoglycemic drugs; Z79.899 Other long term (current) drug therapy
CPT/HCPCS: 00532; 36561; 71045; 77001; 82962; J7050; J7120; C1788; J2405